=== PATIENT | female | born 1990 | race American Indian/Alaskan Native ===

== ENCOUNTER 2020-01-28 00:12 | Outpatient (CLI) | payer OTHER ==
[2020-01-28 01:12] LABS: Hematocrit 31.5 % (30.3-42.9); Mean Corpuscular HGB Conc 35 % (30-34); Mean Corpuscular Volume 81 fl (79-97); Platelet Count 218 K/mm3 (140-440); Red Cell Distribution Width 13.9 % (13.2-15.2)
[2020-01-28 01:21] LABS: Bacteria,Urine 2+ /HPF (Negative); Bilirubin,Urine NEG (Negative); Blood,Urine NEG (Negative); Color,Urine Yellow (Yellow); Mucus,Urine 1+ /HPF; Protein,Urine <15 mg/dL mg/dL (Negative); Urobilinogen,Urine < 2.0 mg/dL (<2.0)
[2020-01-28 01:35] LABS: Alanine Aminotransferase 11 units/L (7-56)
[2020-01-28 01:37] LABS: Uric Acid 5.3 mg/dL (3.5-7.6)
[2020-01-28 01:41] VITALS: BP 129/87
[2020-01-28] MEDS ORDERED: ACETAMINOPHEN W/CODEINE 300-30 MG TAB PO ONE (02:05)
== END 2020-01-28 02:47 | disposition home or self-care (01) ==
LOC: TRG 00:12 → APU 00:14 → TRG 02:47
PROVIDERS: ATTEND Obstetrics & Gynecology
DX: O26.893 Other specified pregnancy related conditions, third trimester (principal); R51 Headache; Z3A.37 37 weeks gestation of pregnancy
CPT/HCPCS: 36415; 59025; 81001; 82565; 83615; 84450; 84460; 84550; 85027